=== PATIENT | female | born 1985 | race Caucasian/White ===

== ENCOUNTER 2017-07-28 17:56 | Emergency (ER) | END 2017-07-28 23:57 | disposition home or self-care (01) ==

== ENCOUNTER 2017-07-30 10:30 | Emergency (ER) | END 2017-07-30 15:41 | disposition home or self-care (01) ==

== ENCOUNTER 2018-06-22 10:42 | Inpatient (IN) | END 2018-06-26 19:00 | disposition home or self-care (01) | DRG 788 ==